=== PATIENT | female | born 1940 | race African-American/Black ===

== ENCOUNTER 2017-11-12 17:33 | Emergency (ER) | payer MEDICARE, OTHER ==
[~2017-11-12] VITALS: Ht 172.7 cm; Wt 70.0 kg
[~2017-11-12 17:33] MED LIST: ALPR0.25 PO; DICY20TA10 PO; DUONI NEB; GABA100C4 PO; HYDR10 PO; HYDR10TA16 PO; LISI-360 PO; META800 PO; PRED20 PO; PROT40TA PO; RANI300T PO; SIMV40TA PO; ZITHTAB6 PO
[2017-11-12 17:45] VITALS: BP_SYST 115; BP_DIAS 8; BP_DIAS 85; PULSE 85; RESP 18; TEMP 97.4; O2SAT 96
--- NOTE | 2017-11-12 18:08 | PD ---
HPI Chief Complaint: Pain: Acute or Chronic Time Seen by Provider: 17:43 Travel History International Travel<30 days: No Contact w/Intl Traveler<30days: No History of Present Illness HPI [facility] complaining of left foot buttock pain ongoing for at least a month. Patient states she was in a different hospital where she was told she has gangrene in her foot has been ongoing for a month. States she left the hospital because they were not doing anything for her. Patient describes pain as burning-like sensation without radiation. Pain is worse palpation. Patient reports that her grandson has been taking care of her. Patient states that her grandson called the ambulance today. Patient states that she is followed up with unknown hand drawer in outside hospital. Patient is alert to name, date of , and that she is at [place]. PFSH Past Medical History Atrial Fibrillation: Yes Cardiovascular Problems: Yes (A FIB) High Cholesterol: Yes Cerebrovascular Accident: Yes Patient Takes Glucophage: No Diminished Hearing: No Medical other: Yes (PVD) Myocardial Infarction: Yes Tetanus Vaccination: Unknown Influenza Vaccination: No ?: Not Menopausal: Yes Tubal Ligation: Yes Past Surgical History Cholecystectomy: Yes Hysterectomy: Yes Other Surgery: Yes (NECK SURGERY) Social History Alcohol Use: Yes (BEER SOMETIMES ) Tobacco Use: Yes (1/2 PPK) Substance Use: No Allergies-Medications (Allergen,Severity, Reaction): Coded Allergies: tramadol (Unverified Allergy, Severe, Rash, 01/13/17) vancomycin (Unverified Allergy, Severe, 01/13/17) Reported Meds & Prescriptions Reported Meds & Active Scripts Active Zithromax Tri-Cristian (Azithromycin) Tab 500 Mg PO DIRECTED 3 Days 1 TAB (500 MG) PO DAILY FOR 3 DAYS. Resp: Albuterol/Ipratropium 2.5 Mg/0.5 Mg (Albuterol/Ipratropium) 1 Amp Nebu 1 Ampule NEB Q6HR NEB Deltasone 20 Mg Tab (Prednisone) 20 Mg Tab 20 Mg PO BID 7 Days Skelaxin (Metaxalone) 800 Mg Tab 800 Mg PO TIDPRN FOR MUSCLE RELAXATION Reported Alprazolam 0.25 Mg Tab 0.25 Mg PO HS Gabapentin 100 Mg Cap 100 Mg PO TID Protonix (Pantoprazole Sodium) 40 Mg Tabdr 40 Mg PO DAILY Dicyclomine 20 mg (Dicyclomine HCl) 20 Mg Tab 20 Mg PO TID Lortab 10/500 (Acetaminophen/Hydrocodone Bitart) 10 Mg/500 Mg Tab 1 Tab PO Q4- 6HPRN FOR PAIN Atarax 10 Mg Tab (Hydroxyzine HCl) 10 Mg Tab 10 Mg PO Q6 Lisinopril 10 mg (Lisinopril) 10 Mg Tab 10 Mg PO DAILY Ranitidine Hcl (Ranitidine HCl) 300 Mg Cap 300 Mg PO TIDPRN Simvastatin 40 Mg Tab 40 Mg PO HS Review of Systems Except as stated in HPI: all other systems reviewed are Neg Physical Exam Narrative GENERAL: Well-developed, well nourished, in no acute distress, and non-ill appearing. SKIN: Dry gangrenous toes on the left foot second and fifth digit. Small superficial pressure ulcer noted on buttocks. There is no crepitus. No signs of secondary infection. HEAD: Atraumatic. Normocephalic. EYES: Right pupil round. EOMI. No scleral icterus. No injection or drainage. ENT: No nasal bleeding or discharge. Mucous membranes pink and moist. NECK: Trachea midline. Supple. No nuclear rigidity. CARDIOVASCULAR: Regular rate and rhythm. No murmur appreciated. RESPIRATORY: No accessory muscle use. No respiratory distress. Clear to auscultation. Breath sounds equal bilaterally. MUSCULOSKELETAL: No obvious deformities. No clubbing. No cyanosis. No edema. Full range of motion. NEUROLOGICAL: Awake and alert. No obvious cranial nerve deficits. Motor grossly within normal limits. Normal speech. PSYCHIATRIC: Appropriate mood and affect; insight and judgment normal. Data Data Last Documented VS Vital Signs Date Time Temp Pulse Resp B/P (MAP) Pulse Ox O2 Delivery O2 Flow Rate FiO2 11/12/17 17:45 97.4 85 18 115/85 (95) 96 Orders Orders Complete Blood Count With Diff (11/12/17 17:55) Comprehensive Metabolic Panel (11/12/17 17:55) Act Partial Throm Time (Ptt) (11/12/17 17:55) Ecg Monitoring (11/12/17 17:55) Iv Access Insert/Monitor (11/12/17 17:55) Cath For Specimen (11/12/17 17:55) Oximetry (11/12/17 17:55) C-Reactive Protein (Crp) (11/12/17 17:55) Sodium Chlor 0.9% 1000 Ml Inj (Ns 1000 M (11/12/17 18:45) Prothrombin Time / Inr (Pt) (11/12/17 19:03) Ed Discharge Order (11/12/17 19:55) Labs Laboratory Tests Test 11/12/17 18:10 11/12/17 19:05 White Blood Count 9.0 TH/MM3 Red Blood Count 3.87 MIL/MM3 Hemoglobin 11.7 GM/DL Hematocrit 35.4 % Mean Corpuscular Volume 91.5 FL Mean Corpuscular Hemoglobin 30.2 PG Mean Corpuscular Hemoglobin Concent 33.0 % Red Cell Distribution Width 16.6 % Platelet Count 443 TH/MM3 Mean Platelet Volume 7.7 FL Neutrophils (%) (Auto) 75.6 % Lymphocytes (%) (Auto) 14.4 % Monocytes (%) (Auto) 8.8 % Eosinophils (%) (Auto) 1.0 % Basophils (%) (Auto) 0.2 % Neutrophils # (Auto) 6.8 TH/MM3 Lymphocytes # (Auto) 1.3 TH/MM3 Monocytes # (Auto) 0.8 TH/MM3 Eosinophils # (Auto) 0.1 TH/MM3 Basophils # (Auto) 0.0 TH/MM3 CBC Comment DIFF FINAL Differential Comment Activated Partial Thromboplast Time 21.2 SEC Blood Urea Nitrogen 22 MG/DL Creatinine 1.15 MG/DL Random Glucose 113 MG/DL Total Protein 6.4 GM/DL Albumin 2.1 GM/DL Calcium Level 8.8 MG/DL Alkaline Phosphatase 98 U/L Aspartate Amino Transf (AST/SGOT) 9 U/L Alanine Aminotransferase (ALT/SGPT) 9 U/L Total Bilirubin 0.3 MG/DL Sodium Level 136 MEQ/L Potassium Level 3.9 MEQ/L Chloride Level 103 MEQ/L Carbon Dioxide Level 24.5 MEQ/L Anion Gap 9 MEQ/L Estimat Glomerular Filtration Rate 55 ML/MIN C-Reactive Protein 12.00 MG/DL Prothrombin Time 11.7 SEC Prothromb Time International Ratio 1.2 RATIO MDM Medical Decision Making Medical Screen Exam Complete: Yes Emergency Medical Condition: Yes Differential Diagnosis Acute on chronic pain, osteomyelitis, dehydration, metabolic disturbance Narrative Course 1824 patient's grandson is now at bedside reports he is the caregiver and has power of painter apprentice. States reason he called the ambulance today as he felt that she may be dehydrated. Grandson has paperwork with them reports patient is scheduled to have revascularization in her left lower extremity next week prior to having the toes amputated. He states the foot pain is not why she is here. Patient in no obvious distress upon re-evaluation. All pertinent laboratory result(s) discussed with patient/family. Discussed patient with Dr. Kirk prior to discharge, who saw and evaluated the patient and is in agreement with plan of care and disposition. Any questions/concerns in reference to patient diagnosis/condition discussed and clarified prior to patient's discharge. Reinforced sheer importance of close follow up with patient's primary physician or primary care clinic and surgeon. Instructed patient and her grandson to return to ED immediately, if symptoms return/worsen. Patient and her grandson showed understanding of above instructions. Further instructions and recommendations were detailed in discharge paperwork. Patient left without difficulty out of ED at discharge. Diagnosis Primary Impression: Chronic pain Qualified Codes: G89.29 - Other chronic pain Patient Instructions: Chronic Pain (ED), General Instructions Additional Instructions: Follow-up with your primary care physician next week and surgeon as scheduled. Return to the emergency department if symptoms get worse. Disposition: 01 DISCHARGE HOME Condition: Stable Abraham Pantoja Nov 12, 2017 18:08
--- NOTE | 2017-11-12 18:18 | PD ---
Data Data Last Documented VS Vital Signs Date Time Temp Pulse Resp B/P (MAP) Pulse Ox O2 Delivery O2 Flow Rate FiO2 11/12/17 17:45 97.4 85 18 115/85 (95) 96 Orders Orders Complete Blood Count With Diff (11/12/17 17:55) Comprehensive Metabolic Panel (11/12/17 17:55) Act Partial Throm Time (Ptt) (11/12/17 17:55) Ecg Monitoring (11/12/17 17:55) Iv Access Insert/Monitor (11/12/17 17:55) Cath For Specimen (11/12/17 17:55) Oximetry (11/12/17 17:55) C-Reactive Protein (Crp) (11/12/17 17:55) MDM Supervised Visit with DEV: Yes Narrative Course I, Dr. Kirk, have reviewed the advance practice practitioner's documentation and am in agreement, met with the patient face to face, made the diagnosis, and the medical decision making was done by me. *My assessment and Findings: Patient came to the ER for some chronic wounds. 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 There is no sign of infection on exam. By history these have been this way for at least a full month. I do not think it is likely there is any emergency to deal with this today. IV will be placed and labs obtained. We are going to try to get records from the facility she was hospitalized at last because of this problem. This was about 1 month ago. I presume that they did some vascular evaluation and studies. RUDDY Moore will review these with vascular surgery to determine a plan. If none can be found or none were done then we will of the aorta with runoff. Mehdi Kirk MD Nov 12, 2017 18:18
[2017-11-12 18:39] LABS: AUTOMATED NEUTROPHIL # 6.8 TH/MM3 (1.8-7.7); BASOPHIL % 0.2 % (0.0-2.0); EOSINOPHIL # 0.1 TH/MM3 (0-0.4); HEMATOCRIT 35.4 % (35.0-46.0); HEMOGLOBIN 11.7 GM/DL (11.6-15.3); LYMPH % 14.4 % (9.0-44.0); LYMPHOCYTE # 1.3 TH/MM3 (1.0-4.8); MEAN CELL VOLUME 91.5 FL (80.0-100.0); MEAN CORPUSCULAR HEMOGLOBIN 30.2 PG (27.0-34.0); MEAN PLATELET VOLUME 7.7 FL (7.0-11.0); MONO % 8.8 % (0.0-8.0); MONOCYTE # 0.8 TH/MM3 (0-0.9); NEUT % 75.6 % (16.0-70.0); PLATELET COUNT 443 TH/MM3 (150-450); RED BLOOD COUNT 3.87 MIL/MM3 (4.00-5.30); RED CELL DISTRIBUTION WIDTH 16.6 % (11.6-17.2)
[2017-11-12] MEDS ORDERED: SODIUM CHLOR 0.9% 1000 ML INJ 1,000 ML IV ONE (18:45)
[2017-11-12 19:08] LABS: ALBUMIN 2.1 GM/DL (3.4-5.0); AST (GOT) 9 U/L (15-37); BICARBONATE 24.5 MEQ/L (21.0-32.0); BLOOD UREA NITROGEN 22 MG/DL (7-18); CALCIUM 8.8 MG/DL (8.5-10.1); CHLORIDE 103 MEQ/L (98-107); CREATININE 1.15 MG/DL (0.50-1.00); GLOMERULAR FILTRATION RATE 55 ML/MIN (>89); GLUCOSE,RANDOM 113 MG/DL (74-106); SODIUM (NA) 136 MEQ/L (136-145)
[2017-11-12 19:10] LABS: ALT (GPT) 9 U/L (10-53)
[2017-11-12 19:12] LABS: ALKALINE PHOSPHATASE 98 U/L (45-117); TOTAL BILIRUBIN ADULT 0.3 MG/DL (0.2-1.0); TOTAL PROTEIN 6.4 GM/DL (6.4-8.2)
[2017-11-12 19:53] LABS: INTERNATIONAL NORMALIZED RATIO 1.2 RATIO
[2017-11-12 19:54] LABS: PROTHROMBIN TIME - PATIENT 11.7 SEC (9.8-11.6)
[2017-11-17] MEDS ORDERED: METO25TA3 PO (12:35)
[2017-11-17] MEDS ORDERED: HYDR-3583 PO (12:35)
[2017-11-17] MEDS ORDERED: GABA100C4 PO (12:35)
[2017-11-17] MEDS ORDERED: IPRA0.02 NEB (12:35)
[2017-11-17] MEDS ORDERED: NITR1SUB3 SL (12:35)
[2017-11-17] MEDS ORDERED: PANT40TA3 PO (12:35)
[2017-11-17] MEDS ORDERED: SIMV40TA PO (12:35)
[2017-11-17] MEDS ORDERED: POTA10CA PO (12:35)
== END 2017-11-12 20:29 | disposition home or self-care (01) ==
LOC: NEPE 17:33
DX: G89.29 Other chronic pain (principal); E78.00 Pure hypercholesterolemia, unspecified; I48.91 Unspecified atrial fibrillation; I73.9 Peripheral vascular disease, unspecified; Z72.0 Tobacco use; Z79.899 Other long term (current) drug therapy
CPT/HCPCS: 80053; 85025; 85610; 85730; 86140; 99284; J7030

== ENCOUNTER → 2017-11-19 | Day surgery (SDC) | payer MEDICARE, OTHER ==
[~2017-11-19] VITALS: Ht 152.4 cm; Wt 54.5 kg
[~2017-11-19] MED LIST changes: -ALPR0.25 PO; +BUPIVACAINE/EPINEPHRINE 0.5% PF 30 ML VIAL ONE; +CHLORHEXIDINE GLUCONATE 2 % 1 PACK (2 CLOTHS) TOPICAL PRN; -DICY20TA10 PO; +DO NOT ADM ANY ANTICOAGULANT DRUGS PRN; -DUONI NEB; +HEPARIN SODIUM - IV 10,000 UNITS/10 ML VIAL ONE; +HEPARIN SODIUM - SQ 10,000 UNITS/ML VIAL ONE; +HEPARIN-NS/PF INJ 0 ML ONE; +HYDR-3583 PO; -HYDR10 PO; -HYDR10TA16 PO; +IOHEXOL 300 INJ 50 ML IV ONE; +IPRA0.02 NEB; +LABETALOL HCL 100 MG/20 ML VIAL IV ONE; +LACTATED RINGER'S 1000 ML INJ 500 ML IV ONE; +LACTATED RINGER'S 1000 ML IV PRN; +LIDOCAINE HCL 1% PF 5 ML SYRINGE OTHER ONE; -LISI-360 PO; -META800 PO; +METO25TA3 PO; +METOPROLOL TARTRATE 25 MG TAB PO PRN; +METOPROLOL TARTRATE 5 MG/5 ML VIAL IV ONE; +NITR1SUB3 SL; +ONDANSETRON HCL 4 MG/2 ML VIAL IV PUSH PRN; +PANT40TA3 PO; +POTA10CA PO; +POVIDONE IODINE 5% (ANTISEPSIS KIT) 4 APPLICATIONS EACH NARE PRN; -PRED20 PO; +PROPOFOL 200 MG/20 ML AMP IV ONE; +PROPOFOL 200 MG/20 ML AMP ONE; -PROT40TA PO; +PROTAMINE SULFATE 50 MG/5 ML VIAL ONE; -RANI300T PO; +SODIUM CHLORID 0.9% 500 ML IV PRN; -ZITHTAB6 PO; +ceFAZolin 1,000 MG/NS 100 ML IV SCH
[2017-11-19 08:05] LABS: AUTOMATED NEUTROPHIL # 11.8 TH/MM3 (1.8-7.7); BASOPHIL # 0.1 TH/MM3 (0-0.2); BASOPHIL % 0.5 % (0.0-2.0); EOSINOPHIL # 0.1 TH/MM3 (0-0.4); EOSINOPHIL % 0.4 % (0.0-4.0); HEMATOCRIT 39.1 % (35.0-46.0); HEMOGLOBIN 12.9 GM/DL (11.6-15.3); LYMPH % 8.1 % (9.0-44.0); LYMPHOCYTE # 1.1 TH/MM3 (1.0-4.8); MEAN CELL VOLUME 90.4 FL (80.0-100.0); MEAN CORPUSCULAR HEMOGLOBIN 29.9 PG (27.0-34.0); MEAN PLATELET VOLUME 7.8 FL (7.0-11.0); MONO % 5.7 % (0.0-8.0); MONOCYTE # 0.8 TH/MM3 (0-0.9); NEUT % 85.3 % (16.0-70.0); PLATELET COUNT 463 TH/MM3 (150-450); RED BLOOD COUNT 4.33 MIL/MM3 (4.00-5.30); RED CELL DISTRIBUTION WIDTH 16.5 % (11.6-17.2); WHITE BLOOD COUNT 13.9 TH/MM3 (4.0-11.0)
[2017-11-19 08:07] LABS: INTERNATIONAL NORMALIZED RATIO 1.1 RATIO
[2017-11-19 08:17] LABS: BICARBONATE 20.9 MEQ/L (21.0-32.0); CALCIUM 8.7 MG/DL (8.5-10.1); CREATININE 0.72 MG/DL (0.50-1.00)
--- NOTE | 2017-11-19 12:28 | EKG ---
Date Performed: 11/19/2017 Time Performed: 07:40:54 PTAGE: 77 years EKG: SINUS TACHYCARDIA ABNORMAL RHYTHM ECG NO PREVIOUS TRACING DOCTOR: Satish Das Interpretating Date/Time 11/19/2017 12:25:47
--- NOTE | 2017-11-19 14:28 | MP ---
cc: Bunny Tracy MD DATE OF OPERATION: 11/19/2017 DATE OF PROCEDURE: 11/19/2017. PREOPERATIVE DIAGNOSIS: Ischemic gangrene, left second and fifth toes. POSTOPERATIVE DIAGNOSIS: Ischemic gangrene, left second and fifth toes. OPERATIVE PROCEDURE: Selective left lower extremity arteriography, left SFA percutaneous balloon angioplasty and stent placement. SURGEON: Ricardo Tracy MD ANESTHESIA: Local, MAC. DESCRIPTION OF OPERATIVE PROCEDURE: With the patient in the supine position, IV sedation was administered, the lower abdomen, both groins and the entire left lower extremity were prepped with Betadine and draped in a sterile fashion. Appropriate IV antibiotic prophylaxis was administered and, following a protocol timeout, the skin and subcutaneous tissues surrounding the proposed right common femoral access site was preemptively infiltrated with 0.5% Marcaine with epinephrine. Utilizing ultrasound guidance, an 18-gauge needle was inserted into the right mid-common femoral lumen, a J-wire was then advanced into the iliac system. The needle was exchanged for a 5-Northern Irish hemostatic sheath, which was deployed over the J wire. An Advantage guidewire, Omni catheter combination was easily negotiated into the sub-renal aorta, the catheter guided into the origin of the left common iliac and the Advantage guidewire then advanced under fluoroscopic guidance into the origin of the left common iliac. Selective left iliofemoral angiogram was then accomplished by injecting diluted contrast via the Omni catheter. This disclosed a widely patent left common external iliac, common, superficial and profunda femoral arteries. The Advantage guidewire, was advanced into the origin of the left SFA and the Omni catheter exchanged for a Quick-Cross catheter. Selective angiography of the remaining runoff was then completed. The SFA was widely patent to the lower thigh level. Flush occlusion occurred 8 cm proximal to the adductor level. Collaterals reconstituted the popliteal at the adductor level. The popliteal was diffusely diseased, but free of any hemodynamically significant appearing stenoses. The trifurcation, however, was severely diseased. The anterior, posterior tibial and peroneal arteries occluded at their origins. The peroneal faintly reconstituted at the mid-calf level. The more distal anterior tibial and posterior tibials never reconstituted. However, robust collaterals reconstituting the peroneal provided single vessel runoff to the left foot. The patient was systemically heparinized with 4000 units. The 5-Northern Irish sheath was exchanged for a 45 cm 6-Northern Irish sheath, which was guided over the aortic bifurcation into the left iliac system. Utilizing road-mapping guidance, the left SFA occlusion was easily crossed with the Advantage guidewire Quick-Cross catheter combination. Balloon angioplasty of the occluded segment was completed with a 5 mm x 80 mm balloon, inflated to 8 atmospheres, 2 separate inflations of 2 minutes each. This was followed by deployment of a 5 x 100 mm self-expanding stent, which was postdilated with the 5 mm balloon. Completion angiogram revealed wide patency of the previously occluded SFA segment with no residual stenosis or technical defects. Also, runoff appeared much improved following reconstitution of SFA flow. Heparin was not reversed. The 6-Northern Irish sheath was exchanged for a short 6-Northern Irish sheath. At the conclusion of the procedure Doppler flow was much improved, biphasic and robust within the distal left peroneal and capillary refill. The left foot appeared much improved. The patient returned to the recovery room in stable condition having tolerated the procedure well. MD DARREN Galeano/CL[place] , 01:21 PM , 02:27 PM
[2017-11-19 17:30] VITALS: BP 143/63; PULSE 104; RESP 20; TEMP 97.6; O2SAT 100
== END | disposition home or self-care (01) ==
LOC: HSDC 06:16
PROVIDERS: ATTEND Surgery Vascular Surgery
DX: I96 Gangrene, not elsewhere classified (principal); I77.1 Stricture of artery; L03.116 Cellulitis of left lower limb; I10 Essential (primary) hypertension; K21.9 Gastro-esophageal reflux disease without esophagitis; J44.9 Chronic obstructive pulmonary disease, unspecified; C34.90 Malignant neoplasm of unspecified part of unspecified bronchus or lung; M19.90 Unspecified osteoarthritis, unspecified site; Z87.11 Personal history of peptic ulcer disease; Z01.818 Encounter for other preprocedural examination
CPT/HCPCS: 01270; 37226; 75710; 76937; 80048; 85025; 85610; 85730; 86077; 86850; 86870; 86900; 86901; 86902; 86920; 86922; 93005; C1769; C1876; J0690; J1644; J2720; J3010; Q9967